=== PATIENT | female | born 1970 | race American Indian/Alaskan Native ===

== ENCOUNTER 2019-05-19 15:00 | Emergency (ER) | payer OTHER ==
[2019-05-19 16:26] VITALS: BP 136/88
--- NOTE | 2019-05-19 16:28 | Event Note ---
ED Screening Note Date of service: 05/19/19 Time: 16:26 ED Screening Note: 49 y o f was sent by director of religious life to ED to be evaluated for hematuria and dysuris with andreia hui This initial assessment/diagnostic orders/clinical plan/treatment(s) is/are subject to change based on patients health status, clinical progression and re- assessment by fellow clinical providers in the ED. Further treatment and workup at subsequent clinical providers discretion. Patient/guardian urged not to elope from the ED as their condition may be serious if not clinically assessed and managed. Initial orders include: ua acc
[2019-05-19 18:56] LABS: Bilirubin,Urine NEG (Negative); Blood,Urine LG (Negative); Color,Urine Yellow (Yellow); RBC,Urine > 182.0 /HPF (0.0-6.0); WBC,Urine > 182.0 /HPF (0.0-6.0)
--- NOTE | 2019-05-19 22:05 | Emergency Department Report ---
ED Female HPI - General Chief complaint: Urogenital-Female Stated complaint: BLOOD IN URINE/PAIN Time Seen by Provider: 05/19/19 19:54 Source: patient Mode of arrival: Ambulatory Limitations: No Limitations - History of Present Illness Initial comments: This is a 49-year-old -[place] female who presents to the emergency room with hematuria and dyspareunia. Patient reports dyspareunia for several days after removing a tampon that was stuck for seven days. 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 She was referred for an ultrasound at the end of this week. Patient reports hematuria and vaginal discharge started today which was alarming. Denies urinary frequency, urgency, dysuria, fever, or chills. MD Complaint: vaginal discharge, other (Hematuria and vaginal pain) Onset/Timin -: days(s) Location: labia Radiation: non-radiating Severity: moderate Severity scale (0 -10): 6 Quality: aching Consistency: intermittent Improves with: none Worsens with: intercourse Are you Now?: No Associated Symptoms: vaginal discharge, hematuria. denies: vaginal bleeding, abdominal pain, nausea/vomiting, fever/chills, headaches, loss of appetite, dysuria, rash, seizure, shortness of breath, syncope, weakness - Related Data Sexually active: Yes Previous Rx's Medication Instructions Recorded Last Taken Type Nitrofurantoin Frio/M-Cryst 100 mg PO Q12HR #10 capsule 05/19/19 Unknown Rx [Macrobid CAP] Allergies Allergy/AdvReac Type Severity Reaction Status Date / Time No Known Allergies Allergy Unverified 05/19/19 15:13 ED Review of Systems ROS: Stated complaint: BLOOD IN URINE/PAIN Other details as noted in HPI Constitutional: denies: chills, fever Respiratory: denies: cough, shortness of breath, wheezing Cardiovascular: denies: chest pain, palpitations Gastrointestinal: denies: abdominal pain, nausea, diarrhea Genitourinary: hematuria, dyspareunia. denies: urgency, dysuria, frequency, discharge Musculoskeletal: denies: back pain, joint swelling, arthralgia Skin: denies: rash, lesions Neurological: denies: headache, weakness, paresthesias Psychiatric: denies: anxiety, depression ED Past Medical Hx - Past Medical History Previous Medical History?: No - Surgical History Past Surgical History?: No - Social History Smoking Status: Never Smoker Substance Use Type: None - Medications Home Medications: Home Medications Medication Instructions Recorded Confirmed Last Taken Type Nitrofurantoin Frio/M-Cryst 100 mg PO Q12HR #10 capsule 05/19/19 Unknown Rx [Macrobid CAP] ED Physical Exam - General Limitations: No Limitations General appearance: alert, in no apparent distress, obese - Respiratory Respiratory exam: Present: normal lung sounds bilaterally. Absent: respiratory distress - Cardiovascular Cardiovascular Exam: Present: regular rate, normal rhythm. Absent: systolic murmur, diastolic murmur, rubs, gallop - GI/Abdominal GI/Abdominal exam: Present: soft, normal bowel sounds. Absent: distended, tenderness, guarding, rebound, rigid, organomegaly - External exam: Present: normal external exam Speculum exam: Present: vaginal discharge (Malodorous thin white discharge). Absent: cervical discharge, vaginal bleeding, foreign body, tissue, laceration Bi-manual exam: Present: normal bi-manual exam - Extremities Exam Extremities exam: Present: normal inspection - Back Exam Back exam: Absent: CVA tenderness (R), CVA tenderness (L) - Neurological Exam Neurological exam: Present: alert, oriented X3, normal gait - Psychiatric Psychiatric exam: Present: normal affect, normal mood - Skin Skin exam: Present: warm, dry, intact, normal color. Absent: rash ED Course Vital Signs 05/19/19 16:24 Temperature 97.6 F Pulse Rate 78 Respiratory 18 Rate Blood Pressure 136/88 O2 Sat by Pulse 100 Oximetry ED Medical Decision Making - Lab Data Lab Results 05/19/19 05/19/19 Range/Units 17:53 18:29 HCG, Quant < 2 (0-4) mIU/mL Urine Color Yellow (Yellow) Urine Turbidity Cloudy (Clear) Urine pH 8.0 H (5.0-7.0) Ur Specific [place] 1.020 (1.003-1.030) Urine Protein 100 mg/dl (Negative) mg/dL Urine Glucose (UA) Neg (Negative) mg/dL Urine Ketones Neg (Negative) mg/dL Urine Blood Lg (Negative) Urine Nitrite Neg (Negative) Urine Bilirubin Neg (Negative) Urine Urobilinogen 2.0 (<2.0) mg/dL Ur Leukocyte Esterase Lg (Negative) Urine WBC (Auto) > 182.0 H (0.0-6.0) /HPF Urine RBC (Auto) > 182.0 (0.0-6.0) /HPF U Epithel Cells (Auto) 7.0 (0-13.0) /HPF Urine Yeast (Budding) 3+ /HPF - Medical Decision Making This is a 49-year-old female day presents to the emergency room with hematuria and dyspareunia for several days. Vitals are stable. Patient in no acute distress. Work-up: Urinalysis, hCG quant, wet prep, gonorrhea chlamydia, and pelvic exam. Urinalysis large leukocyte Estrace and elevated WBCs. Wet prep positive for clue cells negative trichomonas and yeast. Gonorrhea chlamydia is pending. Patient currently taking antibiotics prescribed by cloth shearing supervisor to cover cervicitis. She is scheduled for an ultrasound at the end of this week. Patient instructed to continue taking antibiotics as prescribed by her cloth shearing supervisor. She is to keep her ultrasound appointment ordered by cloth shearing supervisor. Start Macrobid to cover acute cystitis. Instructed to follow-up with cloth shearing supervisor. Patient discharged home stable. Critical care attestation.: If time is entered above; I have spent that time in minutes in the direct care of this critically ill patient, excluding procedure time. ED Disposition Clinical Impression: Bacterial vaginitis, Acute cervicitis Hematuria Qualifiers: Hematuria type: other microscopic Qualified Code(s): R31.29 - Other microscopic hematuria; R31.2 - Other microscopic hematuria Acute cystitis Qualifiers: Hematuria presence: with hematuria Qualified Code(s): N30.01 - Acute cystitis with hematuria Disposition: TO HOME OR SELFCARE Is pt being admited?: No Condition: Stable Instructions: Acute Hematuria (ED), Bacterial Vaginosis (ED), Cervicitis (ED) Additional Instructions: Complete antibiotics as prescribed. Increase fluid intake to 1 L to 2 L daily. Follow-up with your cloth shearing supervisor. Prescriptions: Nitrofurantoin Frio/M-Cryst [Macrobid CAP] 100 mg PO Q12HR #10 capsule Referrals: NAYELI MEJIA RN [Primary Care Provider] - 3-5 Days [facility] [Provider Group] - 3-5 Days [facility] [Provider Group] - 3-5 Days Forms: STI Treatment and Prevention Time of Disposition: 22:10
== END 2019-05-19 22:25 | disposition home or self-care (01) ==
LOC: ED 15:00
DX: N76.0 Acute vaginitis (principal); N72 Inflammatory disease of cervix uteri; R31.9 Hematuria, unspecified; N30.00 Acute cystitis without hematuria; Z79.899 Other long term (current) drug therapy
CPT/HCPCS: 36415; 81001; 84702; 87210; 87591